=== PATIENT | male | born 1955 | race Caucasian/White ===

== ENCOUNTER 2019-06-08 22:30 | Emergency (ER) | payer MEDICAID ==
[2019-06-08 22:39] VITALS: BP 143/80
[2019-06-08] MEDS ORDERED: methylPREDNISolone Sod Succinate 125 MG/2 ML INJ IV ONE (22:47)
[2019-06-08] MEDS ORDERED: FAMOTIDINE 20 MG/2 ML INJ IV ONE (22:47)
[2019-06-08] MEDS ORDERED: diphenhydrAMINE 50 MG/ML VIAL IV ONE (22:47)
--- NOTE | 2019-06-08 23:40 | Emergency Department Report ---
HPI - General Chief Complaint: Allergic Reaction Time Seen by Provider: 06/08/19 22:48 - HPI HPI: Mr. Wren, is s 63 ty/o male with hx of htn , controlled by lisinopril, hctz, and amlodipine, pt states he has been taking same medication for sherif least 5 yrs. however he began to have upper lip swelling today around lunch time. no new foods introduced. There is no sob, no wheezing, no tongue swelling, no sob, no cp, no n/v , no stridor. pt continues to tolerate po intake without symptoms. pt has not taken otc benadryl or antihistamine for lip swelling ED Past Medical Hx - Past Medical History Hx Hypertension: Yes - Social History Smoking Status: Never Smoker Substance Use Type: None - Medications Home Medications: Home Medications Medication Instructions Recorded Confirmed Last Taken Type Famotidine [Pepcid] 20 mg PO BID 7 Days #14 tablet 06/09/19 Unknown Rx diphenhydrAMINE [Benadryl CAP] 25 mg PO Q8HR PRN 7 Days #21 06/09/19 Unknown Rx capsule hydroCHLOROthiazide [HCTZ] 25 mg PO QDAY #30 tablet 06/09/19 Unknown Rx predniSONE [Deltasone] 40 mg PO QDAY 5 Days #10 tab 06/09/19 Unknown Rx ED Review of Systems ROS: Stated complaint: SWOLLEN UPPER LIP Other details as noted in HPI Constitutional: no symptoms reported Eyes: denies: eye pain, eye discharge, vision change ENT: other (lip swelling ). denies: ear pain, throat pain Respiratory: denies: cough, shortness of breath, wheezing Cardiovascular: denies: chest pain, palpitations Endocrine: no symptoms reported Gastrointestinal: as per HPI Genitourinary: denies: urgency, dysuria Musculoskeletal: denies: back pain, joint swelling, arthralgia Skin: denies: rash, lesions Neurological: denies: headache, weakness, paresthesias Psychiatric: denies: anxiety, depression Hematological/Lymphatic: denies: easy bleeding, easy bruising Physical Exam - Physical Exam Vital Signs: Vital Signs 06/08/19 22:38 Temperature 97.9 F Pulse Rate 61 Respiratory 16 Rate Blood Pressure 143/80 [Right] O2 Sat by Pulse 98 Oximetry General: pt resting quitely nad, ent: airway patent no swelling no stridor no wheezing ,uvula midline no lesions or exudate. moderate upper lip swelling no open sores or lesions, no tongue swelling, lungs sounds are clear bilat all lobes, resp even and nonlabored. cv: normal no RGM, abd soft nontender, no n/v , ED Course Vital Signs 06/08/19 22:38 Temperature 97.9 F Pulse Rate 61 Respiratory 16 Rate Blood Pressure 143/80 [Right] O2 Sat by Pulse 98 Oximetry - Reevaluation(s) Reevaluation #1: 06/08/19 23:42 benedryl, solumedrol, pepcid iv, will continue to monitor. ED Medical Decision Making - Medical Decision Making Symptoms improved , swelling reduced , pt denies sob , no wheezing , no stridor, no cp , no dizzines no light headedness, no n/v. Plan: Stop Lisinopril, contine hctz and amlodipine, follow up with Dr. Kumar tomorrow, take medications as prescribed return to ed if symptoms worsen or return , pt is currently a/o x 3, airway patent, lip swelling improved, pt will be dc'd to home in stable condition at this time. Critical care attestation.: If time is entered above; I have spent that time in minutes in the direct care of this critically ill patient, excluding procedure time. ED Disposition Clinical Impression: Allergic reaction caused by a drug Qualifiers: Encounter type: initial encounter Qualified Code(s): T78.40XA - Allergy, unspecified, initial encounter Angio-edema Qualifiers: Encounter type: initial encounter Qualified Code(s): T78.3XXA - Angioneurotic edema, initial encounter Disposition: DC-01 TO HOME OR SELFCARE Is pt being admited?: No Does the pt Need Aspirin: No Condition: Stable Instructions: Allergies (ED) Prescriptions: diphenhydrAMINE [Benadryl CAP] 25 mg PO Q8HR PRN 7 Days #21 capsule PRN Reason: allergies predniSONE [Deltasone] 40 mg PO QDAY 5 Days #10 tab hydroCHLOROthiazide [HCTZ] 25 mg PO QDAY #30 tablet Famotidine [Pepcid] 20 mg PO BID 7 Days #14 tablet Referrals: BETTE HELMS MD [Staff Physician] - [facility], [Primary Care Provider] - 24 Hours Forms: Work/School Release Form(ED) Time of Disposition: 02:12
== END 2019-06-09 02:30 | disposition home or self-care (01) ==
LOC: ED 22:30
DX: T78.3XXA Angioneurotic edema, initial encounter (principal); T45.0X5A Adverse effect of antiallergic and antiemetic drugs, initial encounter; Y92.89 Other specified places as the place of occurrence of the external cause
CPT/HCPCS: 96374; 96375; 99282; J1200; J2930